=== PATIENT | female | born 1990 | race Hispanic/Latino ===

== ENCOUNTER 2022-11-29 00:29 | Day surgery (SDC) | payer OTHER ==
[2022-11-29] MEDS ORDERED: hydrALAZINE 20 MG/ML VIAL SLOW IVP PRN (01:08)
[2022-11-29 01:10] VITALS: BMI 37.6
== END 2022-11-29 04:18 | disposition home or self-care (01) ==
LOC: CSHLD/OP 00:29
PROVIDERS: ATTEND Obstetrics & Gynecology
DX: O46.93 Antepartum hemorrhage, unspecified, third trimester (principal); Z79.82 Long term (current) use of aspirin; Z79.899 Other long term (current) drug therapy; Z3A.36 36 weeks gestation of pregnancy
CPT/HCPCS: 99284

== ENCOUNTER 2022-12-05 11:45 | Day surgery (SDC) | payer SELFPAY ==
[2022-12-05] MEDS ORDERED: hydrALAZINE 20 MG/ML VIAL SLOW IVP PRN (12:24)
[2022-12-05 13:07] LABS: #Eosinphils 0.1 10x3/uL (0.0-0.5); #Monocytes 0.6 10x3/uL (0.0-1.1); #Neutrophils 7.2 10x3/uL (1.5-8.4); %Basophils 0.4 % (0.0-2.0); %Eosinophils 0.5 % (0.0-6.0); %Lymphocytes 17.2 % (18.0-47.0); %Monocytes 6.5 % (0.0-10.0); %Neutrophils 74.6 % (40.0-75.0); Hemoglobin 12.7 g/dL (12.0-15.5); Mean Corpuscular HGB CONC 33.2 g/dL (32.0-36.0); Mean Corpuscular Hemoglobin 27.7 pg (27.0-33.0); Mean Corpuscular Volume 83.2 fl (81.6-98.3); Mean Platelet Volume 9.2 fl (7.4-10.4); Platelet Count 378 10x3/uL (150-450); Red Blood Cell (RBC) Count 4.59 10x6/uL (3.90-5.03); White Blood Cell (WBC) Count 9.7 10x3/uL (3.5-10.5)
[2022-12-05 13:15] LABS: ALT (SGPT) 11 U/L (8-55); AST (SGOT) 21 U/L (5-34); Albumin 3.3 g/dL (3.5-5.0); Alkaline Phosphatase 149 U/L (40-110); Anion Gap 12 mmol/L (10-20); BUN (Urea Nitrogen) 7 mg/dL (7.0-18.7); Bilirubin, Total 0.2 mg/dL (0.2-1.2); Calc. Creatinine Clearance 0 mL/min (70-130); Carbon Dioxide 20 mmol/L (22-29); Chloride 108 mmol/L (98-107); Estimated GFR 125; Globulin 3.5 g/dL (2.4-3.5); Glucose 84 mg/dL (70-105); Potassium 3.9 mmol/L (3.5-5.1); Protein, Total 6.8 g/dL (6.0-8.3); Sodium 136 mmol/L (136-145)
[2022-12-05 13:17] LABS: Creatinine, Urine 27.66 mg/dL (47-110); Protein, Urine Random Quant Less than 10 mg/dL (1-14)
== END 2022-12-05 15:02 | disposition home or self-care (01) ==
LOC: CSHLD/OP 11:45
PROVIDERS: ATTEND Obstetrics & Gynecology
DX: O99.893 Other specified diseases and conditions complicating puerperium (principal); O99.820 Streptococcus B carrier state complicating pregnancy; O99.213 Obesity complicating pregnancy, third trimester; Z79.82 Long term (current) use of aspirin; Z3A.37 37 weeks gestation of pregnancy
CPT/HCPCS: 36415; 80053; 82570; 84156; 85025; 99283

== ENCOUNTER 2022-12-12 11:33 | Day surgery (SDC) | payer SELFPAY ==
[2022-12-12] MEDS ORDERED: hydrALAZINE 20 MG/ML VIAL SLOW IVP PRN (12:48)
== END 2022-12-12 16:30 | disposition home health service (06) ==
LOC: CSHLD/OP 11:33
PROVIDERS: ATTEND Internal Medicine
DX: O47.1 False labor at or after 37 completed weeks of gestation (principal); O99.820 Streptococcus B carrier state complicating pregnancy; O99.213 Obesity complicating pregnancy, third trimester; E66.9 Obesity, unspecified; Z79.82 Long term (current) use of aspirin; Z3A.38 38 weeks gestation of pregnancy

== ENCOUNTER 2022-12-13 05:47 | Inpatient (IN) | payer MEDICAID, SELFPAY ==
[2022-12-13] MEDS: Lactated Ringer's 1,000 ML IV SCH ×2 (06:05→12:31)
[2022-12-13] MEDS ORDERED: Penicillin G Potassium 5 MILL.UNITS VIAL ONE (06:07)
[2022-12-13] MEDS ORDERED: Ondansetron PF 4 MG/2 ML Vial IVP PRN (06:15)
[2022-12-13] MEDS ORDERED: Penicillin G Potassium 5 MILL.UNITS in Sodium Chloride 0.9% 100 ML IVPB SCH (06:15)
[2022-12-13] MEDS ORDERED: Lidocaine 1% (PF) 30 ML VIAL SC PRN (06:15)
[2022-12-13] MEDS ORDERED: hydrALAZINE 20 MG/ML VIAL SLOW IVP PRN ×3 (06:15→07:33)
[2022-12-13] MEDS ORDERED: Promethazine HCl 25 MG/ML VIAL IM PRN (06:15)
[2022-12-13] MEDS ORDERED: NS w/ Oxytocin 30 units 500 ML IV SCH ×2 (06:15→07:45)
[2022-12-13 06:19] VITALS: BMI 35.5
[2022-12-13] MEDS ORDERED: Labetalol HCl 100 MG/20 ML VIAL ONE (06:31)
[2022-12-13 06:32] LABS: Mean Corpuscular HGB CONC 34.1 g/dL (32.0-36.0); Mean Corpuscular Hemoglobin 28.3 pg (27.0-33.0); Mean Corpuscular Volume 82.8 fl (81.6-98.3); Mean Platelet Volume 9.2 fl (7.4-10.4); Platelet Count 379 10x3/uL (150-450); RBC Distribution Width 14.5 % (11.5-14.5); White Blood Cell (WBC) Count 12.9 10x3/uL (3.5-10.5)
[2022-12-13] MEDS ORDERED: Labetalol HCl 100 MG/20 ML VIAL SLOW IVP PRN ×3 (06:34)
[2022-12-13] MEDS ORDERED: Magnesium Sulfate 20 gm/500 ml 20 GM/500 ML BAG ONE (06:50)
[2022-12-13] MEDS ORDERED: Lorazepam 2 MG/ML VIAL SLOW IVP PRN (06:52)
[2022-12-13] MEDS ORDERED: Calcium Gluc 4.6 MEQ/10 ML (100 MG/ML) SLOW IVP PRN (06:52)
[2022-12-13 07:13] LABS: HBSAg Index 0.17 S/CO (0-0.99); Hep B Surf Ag Non-Reactive S/CO (NonReactive)
[2022-12-13 07:14] LABS: Syphilis Antibody Nonreactive (Nonreactive); Syphilis Antibody Index 0.03 S/CO (<1.00 Non-Reactive)
[2022-12-13 07:32] LABS: ALT (SGPT) 10 U/L (8-55); AST (SGOT) 18 U/L (5-34); Albumin 3.4 g/dL (3.5-5.0); Alkaline Phosphatase 151 U/L (40-110); Anion Gap 16 mmol/L (10-20); BUN (Urea Nitrogen) 10 mg/dL (7.0-18.7); Bilirubin, Total 0.2 mg/dL (0.2-1.2); Calc. Creatinine Clearance 186 mL/min (70-130); Calcium 8.7 mg/dL (7.8-10.44); Carbon Dioxide 16 mmol/L (22-29); Chloride 109 mmol/L (98-107); Estimated GFR 126; Globulin 3.1 g/dL (2.4-3.5); Glucose 96 mg/dL (70-105); Protein, Total 6.5 g/dL (6.0-8.3); Sodium 137 mmol/L (136-145)
[2022-12-13 07:33] LABS: Uric Acid 4.2 mg/dL (2.6-6.0)
[2022-12-13] MEDS ORDERED: Milk Of Magnesia 30 ML UDCUP PO PRN (07:33)
[2022-12-13] MEDS ORDERED: Benzocaine-Menthol 82.5 ML CAN TOP PRN (07:33)
[2022-12-13] MEDS ORDERED: diphenhydrAMINE 25 MG CAP PO PRN (07:33)
[2022-12-13] MEDS ORDERED: Boostrix 0.5 ML (Tdap) VIAL (>/=7 yrs of age) IM ONE (07:33)
[2022-12-13] MEDS ORDERED: Bisacodyl 10 MG SUPP PR PRN (07:33)
[2022-12-13] MEDS ORDERED: Misoprostol 200 MCG TAB VAG PRN (07:33)
[2022-12-13] MEDS: Acetaminophen 500 MG TAB PO PRN ×2 (08:18→17:14)
[2022-12-13] MEDS ORDERED: Prenatal Vitamin 1 TAB PO SCH (09:00)
[2022-12-13] MEDS ORDERED: Penicillin G 2.5 MILL.units 2.5 MILL.UNITS in Premix Bag 1 BAG IVPB SCH (10:30)
[2022-12-13 14:48] LABS: Creatinine, Urine 47.31 mg/dL (47-110); Protein, Urine Random Quant Less than 10 mg/dL (1-14)
[2022-12-13] MEDS: Magnesium Sulfate 20 gm/500 ml 20 GM/500 ML BAG IVPB SCH (15:06)
[2022-12-13] MEDS: Docusate 100 MG CAP PO SCH ×2 (21:11→22:04)
[2022-12-13] MEDS: Ferrous Sulfate 325 MG TAB PO SCH (21:11)
[2022-12-13] MEDS: Ibuprofen 800 MG TAB PO SCH ×2 (21:12→22:04)
[2022-12-14] MEDS: Magnesium Sulfate 20 gm/500 ml 20 GM/500 ML BAG IVPB SCH (00:51)
[2022-12-14] MEDS: Ibuprofen 800 MG TAB PO SCH ×3 (06:05→21:38)
[2022-12-14] MEDS ORDERED: hydrALAZINE 20 MG/ML VIAL SLOW IVP PRN (07:57)
[2022-12-14] MEDS ORDERED: Ondansetron PF 4 MG/2 ML Vial IVP PRN (07:57)
[2022-12-14] MEDS ORDERED: diphenhydrAMINE 25 MG CAP PO PRN (07:57)
[2022-12-14] MEDS ORDERED: Milk Of Magnesia 30 ML UDCUP PO PRN (07:57)
[2022-12-14] MEDS ORDERED: Bisacodyl 10 MG SUPP PR PRN (07:57)
[2022-12-14] MEDS ORDERED: Benzocaine-Menthol 82.5 ML CAN TOP PRN (07:57)
[2022-12-14] MEDS ORDERED: Boostrix 0.5 ML (Tdap) VIAL (>/=7 yrs of age) IM ONE (07:57)
[2022-12-14] MEDS ORDERED: Promethazine HCl 25 MG/ML VIAL IM PRN (07:57)
[2022-12-14] MEDS: Ferrous Sulfate 325 MG TAB PO SCH ×2 (08:27→16:33)
[2022-12-14] MEDS: Docusate 100 MG CAP PO SCH ×2 (09:15→21:38)
[2022-12-14] MEDS: Prenatal Vitamin 1 TAB PO SCH (09:17)
[2022-12-14] MEDS: Lactated Ringer's 1,000 ML IV SCH (09:23)
[2022-12-14] MEDS ORDERED: Acetaminophen 500 MG TAB PO PRN (16:19)
[2022-12-14] MEDS ORDERED: Piperacillin/Tazobactam 3.375 GM in Sodium Chloride 0.9% 100 ML IVPB SCH (17:00)
[2022-12-14] MEDS ORDERED: Sodium Chloride 0.9% 100 ML ONE (21:18)
[2022-12-14] MEDS: Piperacillin/Tazobactam 3.375 GM in Sodium Chloride 0.9% 100 ML IVPB SCH (21:37)
[2022-12-15] MEDS: Piperacillin/Tazobactam 3.375 GM in Sodium Chloride 0.9% 100 ML IVPB SCH ×2 (05:38→14:44)
[2022-12-15] MEDS: Ibuprofen 800 MG TAB PO SCH ×3 (05:38→22:20)
[2022-12-15 07:48] LABS: #Basophils 0.1 10x3/uL (0.0-0.2); #Eosinphils 0.2 10x3/uL (0.0-0.5); #Monocytes 0.6 10x3/uL (0.0-1.1); #Neutrophils 6.2 10x3/uL (1.5-8.4); %Basophils 0.8 % (0.0-2.0); %Eosinophils 1.8 % (0.0-6.0); %Lymphocytes 17.8 % (18.0-47.0); %Monocytes 6.9 % (0.0-10.0); %Neutrophils 71.3 % (40.0-75.0); Hemoglobin 9.9 g/dL (12.0-15.5); Mean Corpuscular HGB CONC 32.4 g/dL (32.0-36.0); Mean Corpuscular Hemoglobin 27.6 pg (27.0-33.0); Mean Corpuscular Volume 85.2 fl (81.6-98.3); Mean Platelet Volume 9.2 fl (7.4-10.4); Platelet Count 266 10x3/uL (150-450); RBC Distribution Width 15.1 % (11.5-14.5); Red Blood Cell (RBC) Count 3.59 10x6/uL (3.90-5.03); White Blood Cell (WBC) Count 8.8 10x3/uL (3.5-10.5)
[2022-12-15] MEDS: Prenatal Vitamin 1 TAB PO SCH (08:24)
[2022-12-15] MEDS: Docusate 100 MG CAP PO SCH ×2 (08:24→22:20)
[2022-12-15 09:43] LABS: SARS-CoV-2 NAA Rapid Test Not Detected (NotDetected)
[2022-12-15] MEDS: Ferrous Sulfate 325 MG TAB PO SCH ×2 (14:44→18:33)
[2022-12-16] MEDS: Ibuprofen 800 MG TAB PO SCH (05:46)
[2022-12-16 07:41] VITALS: BP 137/72; TEMP 98.2
[2022-12-16] MEDS: Prenatal Vitamin 1 TAB PO SCH (08:51)
[2022-12-16] MEDS: Docusate 100 MG CAP PO SCH (08:51)
[2022-12-16] MEDS: Ferrous Sulfate 325 MG TAB PO SCH (08:53)
== END 2022-12-16 12:05 | disposition home or self-care (01) | DRG 806 ==
LOC: CSHLD/OP 05:47 → CSHLD 06:07 → CSHANTE 12-14 08:05
PROVIDERS: ADMIT Obstetrics & Gynecology; ATTEND Obstetrics & Gynecology
PROC: 10E0XZZ Delivery of Products of Conception, External Approach (ICD-10-PCS; principal; 2022-12-13)
DX: O42.02 Full-term premature rupture of membranes, onset of labor within 24 hours of rupture (principal); O86.4 Pyrexia of unknown origin following delivery; Z37.0 Single live birth; O14.14 Severe pre-eclampsia complicating childbirth; O99.824 Streptococcus B carrier state complicating childbirth; E66.9 Obesity, unspecified; Z20.822 Contact with and (suspected) exposure to COVID-19; O99.214 Obesity complicating childbirth; Z79.82 Long term (current) use of aspirin; Z98.890 Other specified postprocedural states; Z3A.38 38 weeks gestation of pregnancy; O62.3 Precipitate labor
CPT/HCPCS: 36415; 51702; 80053; 82570; 84156; 84550; 85025; 85027; 86780; 86850; 86900; 86901; 87040; 87340; 99285; J2540; J2543; J3475; J3490; J7120

== ENCOUNTER 2024-04-26 12:55 | Emergency (ER) | payer MEDICAID, SELFPAY ==
[2024-04-26 14:19] LABS: Bilirubin Neg (Negative); Blood, Urine Negative (Negative); Clarity Clear (Clear); Glucose, Urine (Dipstick) Normal (Negative); Ketone, Urine Negative (Negative); Leukocyte Negative (Negative); Nitrite Negative (Negative); Protein, Urine (Dipstick) Negative (Neg-Trace); Urobilinogen Normal mg/dL (Less than 2)
[2024-04-26 14:29] LABS: Bacteria/HPF Rare-Few HPF (None Seen); CAUTI Indications for Culture Pregnancy; RBC/HPF 0-3 HPF (0-3); WBC/HPF 0-3 HPF (0-3)
[2024-04-26 14:31] LABS: Urine Culture Reflex Yes Yes
[2024-04-26 14:41] LABS: #Basophils 0.03 10x3/uL (0.0-0.2); #Eosinphils 0.08 10x3/uL (0.0-0.5); #Monocytes 0.38 10x3/uL (0.0-1.1); #Neutrophils 4.96 10x3/uL (1.5-8.4); %Basophils 0.4 % (0.0-2.0); %Eosinophils 1.2 % (0.0-6.0); %Lymphocytes 18.1 % (18.0-47.0); %Monocytes 5.7 % (0.0-10.0); %Neutrophils 74.3 % (40.0-75.0); Hemoglobin 13.5 g/dL (12.0-15.5); Mean Corpuscular HGB CONC 34.6 g/dL (32.0-36.0); Mean Corpuscular Hemoglobin 29.6 pg (27.0-33.0); Mean Corpuscular Volume 85.5 fL (81.6-98.3); Mean Platelet Volume 8.6 fL (7.4-10.4); Platelet Count 312 10x3/uL (150-450); RBC Distribution Width 12.4 % (11.5-14.5); Red Blood Cell (RBC) Count 4.56 10x6/uL (3.90-5.03); White Blood Cell (WBC) Count 6.7 10x3/uL (3.5-10.5)
[2024-04-26 15:15] LABS: ALT (SGPT) 83 U/L (8-55); AST (SGOT) 131 U/L (5-34); Albumin 3.5 g/dL (3.5-5.0); Alkaline Phosphatase 79 U/L (40-110); Anion Gap 10 mmol/L (10-20); BUN (Urea Nitrogen) 6 mg/dL (7.0-18.7); Bilirubin, Total 0.4 mg/dL (0.2-1.2); Calc. Creatinine Clearance 0 mL/min (70-130); Calcium 8.6 mg/dL (7.8-10.44); Carbon Dioxide 21 mmol/L (22-29); Chloride 105 mmol/L (98-107); Estimated GFR 123; Globulin 3.6 g/dL (2.4-3.5); Glucose 72 mg/dL (70-105); Potassium 3.2 mmol/L (3.5-5.1); Protein, Total 7.1 g/dL (6.0-8.3); Sodium 133 mmol/L (136-145)
[2024-04-26] MEDS ORDERED: Acetaminophen 500 MG TAB ONE (15:25)
== END 2024-04-26 16:55 | disposition home or self-care (01) ==
LOC: CSHERS 12:55
DX: O99.891 Other specified diseases and conditions complicating pregnancy (principal); R10.13 Epigastric pain; Z3A.13 13 weeks gestation of pregnancy
CPT/HCPCS: 36415; 76705; 80053; 81001; 83690; 84702; 85025; 87086